=== PATIENT | female | born 1980 | race Caucasian/White ===

== ENCOUNTER 2016-05-15 05:32 | Inpatient (IN) | payer BC ==
[~2016-05-15] VITALS: Ht 172.7 cm; Wt 134.5 kg
[~2016-05-15 05:32] MED LIST: ENDOCET 5-3251 EACH PO; IBUPROFEN800 MG PO; STOOL SOFTENER100 M1 PO; ZESTRIL10 MG PO; ZOLOFT50 MG PO
[2016-05-15 06:18] VITALS: BP 106/70
[2016-05-15 06:33] VITALS: BP 106/70
[2016-05-15 11:45] VITALS: BP 132/72
[2016-05-15 16:22] VITALS: BP 115/67
[2016-05-15 19:35] VITALS: BP 149/83
[2016-05-15 23:52] VITALS: BP 106/53
[2016-05-16 03:25] VITALS: BP 144/73
[2016-05-16 07:41] LABS: HEMATOCRIT 36.9 % (36.0-46.0); MCH 29.4 PG (29.0-34.0); MCHC 33.3 G/DL (30.0-36.0); MCV 88.1 FL (83-99); MEAN PLAT.VOLUME 11.1 uM^3 (9.5-12.4); PLATELET COUNT 184 K/uL (156-360); RBC DIS.WIDTH-CV 12.8 % (11.8-14.6); RBC DIS.WIDTH-SD 41.2 % (39-53); RED BLOOD COUNT 4.19 M/uL (3.80-5.20); WHITE BLOOD COUNT 6.7 K/uL (4.1-10.2)
[2016-05-16 08:09] LABS: ANION GAP 8 MEQ/L (2-14); CHLORIDE 105 MEQ/L (99-109); GFR ESTIMATE (CALCULATED) > 59 mL/min/; GLUCOSE 93 mg/dL (70-99); MAGNESIUM 1.8 mg/dl (1.3-2.7); POTASSIUM 3.6 MEQ/L (3.7-5.4); SAMPLE HEMOLYSIS CHECK 0; SAMPLE ICTERIC CHECK 0; SAMPLE LIPEMIA CHECK 0; SODIUM 139 MEQ/L (136-147); UREA NITROGEN (BUN) 4 mg/dL (9-23)
[2016-05-16 08:35] VITALS: BP 131/72
[2016-05-16] MEDS ORDERED: HYDROCODON-ACE1 EAC7 PO (08:38)
[2016-05-16 11:52] VITALS: BP 132/68
== END 2016-05-16 15:33 | disposition home or self-care (01) | DRG 621 ==
LOC: 2SOUTH 05:32 → 2EAST 10:09 → 2SOUTH 10:43 → 2EAST 05-16 15:33
PROVIDERS: Surgery
PROC: 0DB64Z3 Excision of Stomach, Percutaneous Endoscopic Approach, Vertical (ICD-10-PCS; principal; 2016-05-15)
DX: E66.01 Morbid (severe) obesity due to excess calories (principal); Z68.42 Body mass index [BMI] 45.0-49.9, adult; I10 Essential (primary) hypertension; F41.9 Anxiety disorder, unspecified
CPT/HCPCS: 80048; 82948; 83735; 84100; 85027; C9113; J0131; J0330; J0690; J1100; J1170; J1644; J1650; J1815; J2270; J2405; J2710; J2765; J3010; J3480; J7120; S0020